=== PATIENT | female | born 2000 | race African-American/Black ===

== ENCOUNTER → 2020-10-12 | Outpatient (CLI) | payer OTHER ==
[~2020-10-12] MED LIST: ISOVUE-370 76% 100ML VIAL As Ordered ONE
--- NOTE | 2020-10-12 22:25 | IPNPDOC ---
Text Note Date of Service The patient was seen on 10/12/20. NOTE Proposed Procedure: HYSTEROSALPINGOGRAM (HSG) Indication: Infertility evaluation. LMP: 01 Oct 2020. History of STIs or PID: Negative. Antibiotic prophylaxis: None. Allergies: No known drug allergies. Limited review of systems: Negative. Urine test: Negative. Timeout verification - Prior to the procedure, a final timeout was performed with all members of the team verifying informed consent, site, positioning, implant(s), and special equipment. Written consent was obtained from the patient prior to the procedure. The patient was then counseled as to the nature of the proposed procedure, risk involved (including but not limited to infection, allergic reaction to the contrast, fainting, cramping, spotting, and exposure of potential ), and expected results. She was given the opportunity to ask questions and provid ed with a copy of "Patient's fact sheet - Hysterosalpingogram (HSG)" from the [employer] together with instructions to contact us or go to the emergency room in case of complications. A sterile speculum was placed and the cervix cleaned with betadine. There were several attempts to place the small catheter into the uterus without success. The cervix was then grasped with a single-tooth tenaculum and there were several unsuccessful attempts to place the small catheter into the cervix. Patient was extremely uncomfortable with both the speculum placement, tenaculum placement, as well as placement of the catheter. She asked to halt the procedure. The single-tooth tenaculum was removed from the anterior lip of the cervix. Hemostas is was noted. The speculum was subsequently removed. All instrument counts were correct 2. The procedure was halted. Lucy Kelly., Ph.D. [employer] [facility] PROF[employer] Staff Physician RAJESH PARISI M.D. Oct 12, 2020 22:25
== END ==
LOC: M RADPRO 11:31
PROVIDERS: ATTEND Obstetrics & Gynecology Reproductive Endocrinology
DX: N97.9 Female infertility, unspecified (principal)
CPT/HCPCS: 58340; Q9967

== ENCOUNTER → 2020-11-28 | Outpatient (CLI) | payer OTHER ==
--- NOTE | 2020-11-28 14:22 | REP ---
INDICATION: INFERTILITY. COMPARISON: None. TECHNIQUE: The endometrium is cannulated by the attending ditch worker. Fluoroscopic guidance is provided during contrast injection and intermittent spot filming is acquired. 0.3 minutes of fluoroscopy time is utilized. FINDINGS: There is opacification of a normal shaped endometrial cavity. No filling defect or synechia is appreciated. The isthmic and ampullary segments of fallopian tubes opacify promptly and symmetrically. Bilateral tubal patency is documented. IMPRESSION: Normal hysterosalpingogram documenting bilateral tubal patency. <Electronically signed by Tico Lacy > 11/28/20 [id number]
== END ==
LOC: M RADPRO 11:32
PROVIDERS: ATTEND Obstetrics & Gynecology
DX: N97.9 Female infertility, unspecified (principal)
CPT/HCPCS: 58340; 74740; Q9967